=== PATIENT | female | born 1990 | race African-American/Black ===

== ENCOUNTER → 2017-10-08 | Outpatient (REF) | payer OTHER ==
[2017-10-08 18:56] LABS: HEMATOCRIT 32.8 % (36.0-47.0); HEMOGLOBIN 10.6 g/dl (12.0-16.0); MEAN CORPUSCULAR HEMOGLOBIN 26.2 pg (27.0-33.0); MEAN CORPUSCULAR HGB CONC 32.3 g/dl (32.0-36.5); MEAN CORPUSCULAR VOLUME 81.2 fl (80.0-96.0); PLATELET COUNT, AUTOMATED 346 10^3/uL (150-450); RED BLOOD COUNT 4.04 10^6/uL (4.00-5.40); RED CELL DISTRIBUTION WIDTH 13.1 % (11.5-14.5)
[2017-10-08 20:47] LABS: HCG, SERUM QUANTITATIVE 79216 MIU/ML
[2017-10-08 21:29] LABS: CHLAMYDIA DNA AMPLIFICATION NEGATIVE (NEGATIVE)
[2017-10-09 06:55] LABS: GC DNA AMPLIFICATION NEGATIVE (NEGATIVE)
[2017-10-09 10:42] LABS: RUBELLA IgG QUALITATIVE IMMUNE (IMMUNE)
[2017-10-09 10:44] LABS: HBsAg Prenatal NEGATIVE (NEGATIVE)
[2017-10-09 11:11] LABS: HIV 1&2 SCREEN CENTAUR NEGATIVE (NEGATIVE)
[2017-10-09 11:19] LABS: HEPATITIS C VIRUS ABY INDEX < 0.0 INDEX (<0.8)
== END ==
LOC: M LAB REF 16:56
DX: O36.80X0 Pregnancy with inconclusive fetal viability, not applicable or unspecified (principal)

== ENCOUNTER → 2017-11-05 | Outpatient (REF) | payer OTHER ==
[2017-11-05 20:06] LABS: CHLAMYDIA DNA AMPLIFICATION NEGATIVE (NEGATIVE); GC DNA AMPLIFICATION NEGATIVE (NEGATIVE)
== END ==
LOC: M LAB REF 16:35
DX: Z34.82 Encounter for supervision of other normal pregnancy, second trimester (principal); Z3A.13 13 weeks gestation of pregnancy

== ENCOUNTER → 2017-11-05 | Outpatient (REF) | payer OTHER ==
[2017-11-05 20:31] LABS: SICKLE CELL SCREEN NEGATIVE (NEGATIVE)
== END ==
LOC: M LAB REF 17:25
DX: Z34.01 Encounter for supervision of normal first pregnancy, first trimester (principal)

== ENCOUNTER → 2018-02-17 | Outpatient (CLI) | payer OTHER ==
[2018-02-17 14:23] LABS: MEAN CORPUSCULAR HEMOGLOBIN 26.9 pg (27.0-33.0); MEAN CORPUSCULAR HGB CONC 32.1 g/dl (32.0-36.5); MEAN CORPUSCULAR VOLUME 83.6 fl (80.0-96.0); PLATELET COUNT, AUTOMATED 285 10^3/uL (150-450); RED BLOOD COUNT 3.35 10^6/uL (4.00-5.40); RED CELL DISTRIBUTION WIDTH 12.8 % (11.5-14.5); WHITE BLOOD COUNT 9.8 10^3/uL (4.0-10.0)
[2018-02-17 14:28] LABS: GLUCOSE CHALLENGE TEST 1 HOUR 104 MG/DL (LESS THAN 140)
== END ==
LOC: M LAB 12:37
DX: Z34.02 Encounter for supervision of normal first pregnancy, second trimester (principal); Z3A.00 Weeks of gestation of pregnancy not specified
CPT/HCPCS: 82950

== ENCOUNTER → 2018-04-13 | Outpatient (REF) | payer OTHER | LOC: M LAB REF 16:44 | DX: Z34.03 Encounter for supervision of normal first pregnancy, third trimester (principal) ==

== ENCOUNTER 2018-04-22 15:20 | Outpatient (CLI) | payer OTHER ==
[2018-04-22] MEDS: ONDANSETRON 4 MG TAB (S0181) PO (16:53)
== END 2018-04-22 16:55 | disposition home or self-care (01) ==
LOC: M LDO 15:20
DX: O26.893 Other specified pregnancy related conditions, third trimester (principal); R10.30 Lower abdominal pain, unspecified; M54.5 Low back pain; O47.1 False labor at or after 37 completed weeks of gestation; Z3A.37 37 weeks gestation of pregnancy
CPT/HCPCS: 59025

== ENCOUNTER 2018-05-13 06:53 | Inpatient (IN) | payer OTHER ==
[2018-05-13] MEDS: miSOPROStol 50 MCG 1/2 TAB (S0191) PO (08:24)
[2018-05-13 09:28] LABS: HEMATOCRIT 30.3 % (36.0-47.0); HEMOGLOBIN 9.5 g/dl (12.0-15.5); MEAN CORPUSCULAR HEMOGLOBIN 26.1 pg (27.0-33.0); MEAN CORPUSCULAR HGB CONC 31.4 g/dl (32.0-36.5); MEAN CORPUSCULAR VOLUME 83.2 fl (80.0-96.0); PLATELET COUNT, AUTOMATED 321 10^3/uL (150-450); RED BLOOD COUNT 3.64 10^6/uL (4.00-5.40); RED CELL DISTRIBUTION WIDTH 15.1 % (11.5-14.5); WHITE BLOOD COUNT 7.1 10^3/uL (4.0-10.0)
[2018-05-13 09:55] LABS: AMPHETAMINES URINE REFLEX NEGATIVE (NEGATIVE); BARBITURATES URINE REFLEX NEGATIVE (NEGATIVE); BENZODIAZEPINES URINE REFLEX NEGATIVE (NEGATIVE); CANNABINOIDS URINE REFLEX NEGATIVE (NEGATIVE); COCAINE METABOLITE URINE REFLE NEGATIVE (NEGATIVE); METHADONE URINE REFLEX NEGATIVE (NEGATIVE); OPIATES URINE REFLEX NEGATIVE (NEGATIVE); PHENCYCLIDINE URINE REFLEX NEGATIVE (NEGATIVE)
[2018-05-13] MEDS ORDERED: FENTANYL 2MCG/ML ROPIVACAINE 0.2% IN 0.9% NACL 200ML IVBAG As Ordered (17:44)
[2018-05-13] MEDS ORDERED: OXYTOCIN 30 UNITS IN 0.9% NaCl 500ML IV BAG (J2590) As Ordered (17:44)
[2018-05-13] MEDS ORDERED: OXYTOCIN DRIP 30 UNITS in APPROPRIATE DILUENT 1 EA IV (18:00)
[2018-05-13] MEDS ORDERED: REFRIGERATOR IV KEYS XX (19:30)
[2018-05-13] MEDS ORDERED: LACTATED RINGER'S 1000 ML IV (19:30)
[2018-05-13] MEDS ORDERED: ONDANSETRON 4MG/2ML VIAL (J2405) IV ×2 (19:30→23:20)
[2018-05-13] MEDS ORDERED: NALOXONE INJ 0.4 MG/1 ML VIAL (J2310) IV ×3 (19:30→23:20)
[2018-05-13] MEDS ORDERED: ePHEDrine SULFATE 25 MG/5 ML(5MG/ML) SYRINGE IV (19:30)
[2018-05-13] MEDS ORDERED: EPIDURAL/PCA KEYS XX (19:30)
[2018-05-13] MEDS ORDERED: diphenhydrAMINE INJ 50MG/ML VIAL (J1200) IV (19:30)
[2018-05-13] MEDS ORDERED: FENTANYL/ROPIVACAINE/NACL BAG 200 ML EPIDURAL (19:30)
[2018-05-13] MEDS ORDERED: EPIDURAL COMMENT XX (19:30)
[2018-05-13] MEDS ORDERED: ceFAZolin 2 GM/D5W 50 ML IV BAG (J0690 PER 500MG) As Ordered (22:38)
[2018-05-13] MEDS ORDERED: BICITRA 30ML SOLN UDC As Ordered (22:38)
[2018-05-13] MEDS ORDERED: LR 1,000 ML IV (22:38)
[2018-05-13] MEDS: BICITRA 30ML SOLN UDC PO (22:45)
[2018-05-13] MEDS ORDERED: METOCLOPRAMIDE INJ 10MG/2ML VIAL (J2765) IV (23:20)
[2018-05-13] MEDS ORDERED: NALBUPHINE HCL 10 MG/ML AMP (J2300) IV (23:20)
[2018-05-13] MEDS ORDERED: OXYTOCIN INJ 10 UNITS/ML VIAL (J2590) As Ordered (23:25)
[2018-05-13] MEDS ORDERED: dexameTHASONE 4 MG/ML 1ML VIAL (J1100) As Ordered (23:25)
[2018-05-13] MEDS ORDERED: LIDOCAINE 2% W/EPIN INJ 20ML **PRES FREE As Ordered (23:25)
[2018-05-13] MEDS ORDERED: SODIUM BICARBONATE 8.4% INJ 50MEQ 50 ML VIAL As Ordered (23:25)
[2018-05-13] MEDS ORDERED: MORPHINE PRES-FREE INJ 10 MG/10 ML VIAL (J2274) As Ordered (23:25)
[2018-05-13] MEDS ORDERED: ONDANSETRON 4MG/2ML VIAL (J2405) As Ordered (23:25)
[2018-05-13] MEDS ORDERED: KETOROLAC 60 MG/2 ML VIAL (J1885) As Ordered (23:25)
[2018-05-13] MEDS ORDERED: PHENYLephrine HCL 500 MCG/5 ML (100MCG/ML) SYRINGE (J2370) As Ordered (23:26)
[2018-05-13 23:51] LABS: CORD GAS ABE V -3.5; CORD GAS HCO3 V 22.5 MEQ/L; CORD GAS O2 SAT V 57.6 %; CORD GAS PCO2 V 43.8 mmHg; CORD GAS PH V 7.329 UNITS; CORD GAS PO2 V 32.3 mmHg; CORD GAS SBC V 20.9 MEQ/L; CORD GAS TCO2 V 23.9 MEQ/L
[2018-05-13 23:52] LABS: CORD GAS PCO2 A 61.9 mmHg; CORD GAS PH A 7.261 UNITS
[2018-05-13 23:53] LABS: CORD GAS ABE A -1.4; CORD GAS HCO3 A 27.2 MEQ/L; CORD GAS O2 SAT A 35.9 %; CORD GAS PO2 A 19.5 mmHg; CORD GAS TCO2 A 29.1 MEQ/L
[2018-05-13 23:54] LABS: CORD GAS SBC A 21.7 MEQ/L
[2018-05-13] MEDS: LR 1,000 ML IV (23:57)
[2018-05-13] MEDS: OXYTOCIN DRIP 30 UNITS in APPROPRIATE DILUENT 1 EA IV (23:57)
[2018-05-14] MEDS ORDERED: MEASLES,MUMPS,RUBELLA VACCINE INJ (MMR-II) (90707) SC
[2018-05-14] MEDS ORDERED: METHYLERGONOVINE MALEATE 0.2 MG TAB PO
[2018-05-14] MEDS ORDERED: RHOGAM 300 MCG (1500 IU) INJ (J2790) IM
[2018-05-14] MEDS ORDERED: PERCOCET 5MG/325MG TAB PO
[2018-05-14] MEDS ORDERED: fentaNYL 100 MCG/2 ML INJECTION (J3010) IV (00:15)
[2018-05-14] MEDS ORDERED: NALBUPHINE HCL 10 MG/ML AMP (J2300) IV (00:15)
[2018-05-14] MEDS ORDERED: ONDANSETRON 4MG/2ML VIAL (J2405) IV (00:15)
[2018-05-14] MEDS: LR 1,000 ML IV ×2 (00:15→07:57)
[2018-05-14] MEDS ORDERED: KETOROLAC 30 MG/ML VIAL (J1885) IV (00:15)
[2018-05-14] MEDS ORDERED: METOCLOPRAMIDE INJ 10MG/2ML VIAL (J2765) IV (00:15)
[2018-05-14] MEDS ORDERED: PERCOCET 5MG/325MG TAB As Ordered (01:04)
[2018-05-14] MEDS: KETOROLAC 30 MG/ML VIAL (J1885) IV ×3 (05:52→17:16)
[2018-05-14 07:23] LABS: HEMOGLOBIN 7.9 g/dl (12.0-15.5); MEAN CORPUSCULAR HEMOGLOBIN 25.6 pg (27.0-33.0); MEAN CORPUSCULAR HGB CONC 31.6 g/dl (32.0-36.5); MEAN CORPUSCULAR VOLUME 81.2 fl (80.0-96.0); PLATELET COUNT, AUTOMATED 286 10^3/uL (150-450); RED BLOOD COUNT 3.08 10^6/uL (4.00-5.40); RED CELL DISTRIBUTION WIDTH 15.2 % (11.5-14.5); WHITE BLOOD COUNT 16.3 10^3/uL (4.0-10.0)
[2018-05-14] MEDS: DOCUSATE SODIUM 100 MG CAP PO ×2 (08:58→21:22)
[2018-05-14] MEDS: PRENATAL VITAMINS CHEWABLE TABLET PO (08:59)
[2018-05-14] MEDS: INFLUENZA QUADRIVALENT PF VACCINE 0.5ML SYRINGE (90686) IM (11:30)
[2018-05-14] MEDS: PERCOCET 5MG/325MG TAB PO (14:54)
[2018-05-14] MEDS: IBUPROFEN 800 MG TAB PO (23:03)
[2018-05-15] MEDS: PERCOCET 5MG/325MG TAB PO ×3 (06:14→21:14)
[2018-05-15] MEDS: DOCUSATE SODIUM 100 MG CAP PO ×2 (08:01→20:47)
[2018-05-15] MEDS: IBUPROFEN 800 MG TAB PO ×2 (08:01→15:41)
[2018-05-15] MEDS: PRENATAL VITAMINS CHEWABLE TABLET PO (08:01)
[2018-05-16] MEDS: IBUPROFEN 800 MG TAB PO ×2 (00:12→09:12)
[2018-05-16] MEDS: PRENATAL VITAMINS CHEWABLE TABLET PO (09:12)
[2018-05-16] MEDS: DOCUSATE SODIUM 100 MG CAP PO (09:12)
== END 2018-05-16 12:15 | disposition home or self-care (01) | DRG 766 ==
LOC: M LDI 06:53 → M OBS 05-14 02:50
PROVIDERS: Obstetrics & Gynecology
PROC: 10D00Z1 Extraction of Products of Conception, Low, Open Approach (ICD-10-PCS; principal; 2018-05-13 23:03)
PROC: 3E0DXGC Introduction of Other Therapeutic Substance into Mouth and Pharynx, External Approach (ICD-10-PCS; 2018-05-13 23:03)
DX: O48.0 Post-term pregnancy (principal); Z37.0 Single live birth; Z3A.40 40 weeks gestation of pregnancy; Z91.040 Latex allergy status; O76 Abnormality in fetal heart rate and rhythm complicating labor and delivery; O77.0 Labor and delivery complicated by meconium in amniotic fluid

== ENCOUNTER 2018-09-04 11:14 | Emergency (ER) | payer OTHER ==
[~2018-09-04] VITALS: Ht 157.5 cm; Wt 75.5 kg
[~2018-09-04 11:14] MED LIST: FERR325T3 PO; IBUP-1114 PO; IBUP1TAB7 PO; OXYC1TAB23 PO; PRENTAB9 PO; VITA200T4 PO
[2018-09-04 11:15] VITALS: BP 104/66
[2018-09-04] MEDS ORDERED: NEXP1IMP (11:22)
[2018-09-04] MEDS ORDERED: PYRI1TAB5 PO (12:06)
[2018-09-04] MEDS ORDERED: BACT800T5 PO (12:06)
[2018-09-04] MEDS ORDERED: IBUP80TA PO (12:07)
== END 2018-09-04 12:16 | disposition home or self-care (01) ==
LOC: M ED 11:14
DX: N39.0 Urinary tract infection, site not specified (principal); L03.031 Cellulitis of right toe; L08.9 Local infection of the skin and subcutaneous tissue, unspecified; M79.604 Pain in right leg; M79.605 Pain in left leg; Z91.040 Latex allergy status

== ENCOUNTER → 2018-11-16 | Outpatient (REF) | payer OTHER ==
[~2018-11-16] MED LIST changes: +BACT800T5 PO; +IBUP80TA PO; +NEXP1IMP; +PYRI1TAB5 PO
== END ==
LOC: M SFHCLERA 15:20
PROVIDERS: ATTEND Nurse Practitioner Family
DX: R53.81 Other malaise (principal)